=== PATIENT | male | born 1980 | race Caucasian/White ===

== ENCOUNTER → 2022-01-28 16:17 | Outpatient (CLI) | payer MEDICAID, SELFPAY ==
[2022-01-28 13:25] LABS: Basophils # 0.1 K/mm3 (0-0.2); Basophils % 0.9 % (0.1-2.0); Eosinophils # 0.3 K/mm3 (0.0-0.4); Eosinophils % 3.5 % (0.1-12.0); Hematocrit 52.1 % (42.0-52.0); Hemoglobin 16.8 g/dL (14.1-18.0); Lymphocytes # 1.9 K/mm3 (0.7-4.5); Lymphocytes % 27.1 % (10-50); Mean Corpuscular HGB Conc 32.2 g/dL (31.8-35.4); Mean Corpuscular Hemoglobin 34.4 pg (27.0-31.2); Mean Corpuscular Volume 106.9 fl (80-94); Mean Platelet Volume 8.6 fl (7.4-10.4); Monocytes # 0.2 K/mm3 (0.1-1.0); Monocytes % 3.5 % (1.7-9.3); Neutrophils # 4.5 K/mm3 (1.8-7.8); Platelet Count 202 K/mm3 (142-424); Red Blood Count 4.88 M/mm3 (4.60-6.20); Red Cell Distribution Width 14.3 % (11.5-17.5)
[2022-01-28 13:40] LABS: Alanine Aminotransferase 94 U/L (12-78); Albumin Level 4.8 g/dl (3.5-5.0); Albumin/Globulin Ratio 1.5 (1.1-1.8); Alkaline Phosphatase 110 U/L (38-126); Aspartate Amino Transferase 57 U/L (17-59); Bilirubin,Total 0.6 mg/dl (0.2-1.3); Blood Urea Nitrogen 18 mg/dl (9-20); Calcium 9.1 mg/dl (8.4-10.2); Carbon Dioxide 29 mmol/L (22.0-30.0); Chloride 101 mmol/L (98-107); Chol/HDL Ratio 1.8 (1-3.5); Cholesterol 134 mg/dl (140-200); Estimated Glomerular Filt Rate 93 ml/min (>60); GFR (African American) 113 ML/MIN (>60); Globulin 3.2 g/dL (1.3-3.2); Glucose 102 mg/dl (74-100); HDL Cholesterol 74 mg/dl (40-60); Sodium 136 mmol/L (136-145); Triglycerides 70 mg/dl (30-150); VLDL Cholesterol 14 mg/dL (0-40)
[2022-01-28 13:56] LABS: 25-OH Vitamin D, Total 39.8 ng/mL (30-100)
[2022-01-28 13:57] LABS: T4 (Thyroxine) 8.1 ug/dl (5.53-11.0)
[2022-01-28 14:07] LABS: Direct LDL Cholesterol < 30.00 mg/dL (100-129)
[2022-01-28 14:11] LABS: Thyroid Stimulating Hormone 1.03 uIU/mL (0.465-4.68)
[2022-01-28 16:08] LABS: Hemoglobin A1C 4.9 % (4.0-6.0)
[2022-01-28 17:41] LABS: Vitamin B12 326 pg/mL (239-931)
== END ==
PROVIDERS: Visit Provider Physician Assistant
DX: R53.83 Other fatigue (principal); E66.9 Obesity, unspecified; Z68.30 Body mass index [BMI] 30.0-30.9, adult; R42 Dizziness and giddiness; M54.30 Sciatica, unspecified side; Z83.3 Family history of diabetes mellitus
CPT/HCPCS: 80053; 80061; 82306; 82607; 83036; 84436; 84443; 85025

== ENCOUNTER 2024-04-05 13:24 | Outpatient (CLI) | payer MEDICAID, SELFPAY ==
--- NOTE | 2024-04-05 13:28 | XR_ITS ---
FINAL REPORT CLINICAL HISTORY: lt wrist pain COMPARISON: None FINDINGS: 3 images of the left wrist were obtained. There is no evidence of fracture or dislocation. There is 4 mm of negative ulnar variance present. The joint spaces are intact. There is no soft tissue abnormality identified. IMPRESSION: No acute bony abnormality. 4 mm of negative ulnar variance is present. Reviewed, Interpreted and Dictated by Emiliano Koch MD Transcribed by Alyssa Proctor Authenticated and [facility]
== END 2024-04-05 23:59 | disposition home or self-care (01) ==
LOC: RAD 13:25
PROVIDERS: PCP Nurse Practitioner; Visit Provider Orthopaedic Surgery
DX: M25.532 Pain in left wrist (principal)
CPT/HCPCS: 73110